=== PATIENT | female | born 1970 | race Caucasian/White ===

== ENCOUNTER 2016-09-16 15:38 | Emergency (ER) | payer OTHER ==
[2016-09-16] MEDS ORDERED: NS 0.9% 1000 ML* 1,000 ML IV ONE ×2 (17:26→18:25)
[2016-09-16] MEDS ORDERED: Ondansetron INJ* 2 MG/ML VIAL IV ONE (17:26)
[2016-09-16] MEDS ORDERED: Ketorolac INJ* 30 MG/ML 1 ML VIAL IV ONE (17:26)
[2016-09-16] MEDS ORDERED: Morphine INJ* 4 MG/ML 1 ML SYRINGE IV ONE ×2 (17:26→22:08)
[2016-09-16] MEDS ORDERED: Dexamethasone IV* 4 MG/ML 5 ML VIAL (20 MG) IVPB ONE (17:27)
[2016-09-16 18:02] LABS: Hematocrit 43 % (35-47); Hemoglobin 14.5 g/dl (12.0-16.0); Mean Corpuscular HGB Conc 34 g/dl (31-36); Mean Corpuscular Hemoglobin 32 pg (27-31); Mean Corpuscular Volume 93 fL (80-97); Mean Platelet Volume 9 um3 (7.4-10.4); Red Cell Distribution Width 13 % (10.5-15); White Blood Count 15.6 10^3/ul (3.5-10.8)
[2016-09-16 18:10] LABS: Mono Internal Control QC Line Present
[2016-09-16 18:17] LABS: Albumin 4.5 g/dL (3.2-5.2); BUN/Creatinine Ratio 19.7 (8-20); C Reactive Protein 72.07 mg/L (< 5.00); Calcium 9.6 mg/dL (8.6-10.3); EGFR Non-African American 96.4 (>60); Globulin 2.9 g/dL (2-4); Total Bilirubin 1.1 mg/dL (0.2-1.0); Total Protein 7.4 g/dL (6.4-8.9)
[2016-09-16] MEDS ORDERED: Iohexol 300* (CONTRAST) 10 ML SDV IV ONE (18:49)
--- NOTE | 2016-09-16 20:03 | RAD ---
INDICATION: Sore throat COMPARISON: None TECHNIQUE: Axial source images were acquired following the intravenous administration of 50 mL Omnipaque 300 Coronal and sagittal reconstructed images were acquired. FINDINGS: Brain and skull base: There are no CT abnormalities of the visualized brain or skull base. The mastoid air cells are well aerated. Salivary glands: The major salivary glands appear normal but there is infiltrative change of the fat adjacent to the right submandibular gland and there are reactive lymph nodes in the submandibular and submental space on the right. Paranasal sinuses: The paranasal sinuses are clear. Nasopharynx: The nasopharynx and nasal cavity appear normal. Oropharynx: There is right tonsillar prominence with edema in the prevertebral and right carotid space. Findings are suspicious for a developing right-sided peritonsillar abscess. Larynx: There are no laryngeal abnormalities. Thyroid: The thyroid appears normal. Lymph nodes: There are asymmetric lymph nodes in the right carotid space with infiltration of the adjacent fat. Trachea/esophagus: There are no abnormalities of the trachea or visualized esophagus. The visualized lung apices are clear.. Vessels:The vessels appear normal. Bones and soft tissues:The remaining soft tissue elements of the neck are normal. There are no acute bony findings. Other: None IMPRESSION: SUSPECT DEVELOPING RIGHT PERITONSILLAR ABSCESS MEASURING APPROXIMATELY 1.5 CM WITH ADJACENT EDEMA/INFLAMMATORY CHANGE EXTENDING INTO THE CAROTID AND SUBMANDIBULAR SPACE. MILD REACTIVE LYMPHADENOPATHY RIGHT NECK
[2016-09-16] MEDS ORDERED: Clindamycin CAP* 150 MG PO ONE (20:27)
[2016-09-16] MEDS ORDERED: Clindamycin 900 MG IVPREMIX(* 900 MG/50 ML SDV IV ONE (20:27)
[2016-09-16] MEDS ORDERED: oxyCODONE/Acetamin 5/325 MG* TAB PO ONE (20:42)
--- NOTE | 2016-09-16 21:14 | ED ---
Roxann Fuentes Erika, scribed for Crys Raygoza MD on 09/16/16 at 1909 . Throat Pain/Nasal Congestion - HPI Summary HPI Summary: Patient is a 46-year-old female presenting to the ED with her with a CC of constant sore throat starting 09/13/2016. Patient reports that she was seen by her doctor on 09/14 and 09/15, and had a negative strep test on 09/15. Patient was told that if she did not improve with saline rinses and ibuprofen, she could start penicillin today. She did not improve, and took her first dose of penicillin at 12:00 today. Associated symptoms include dysphagia, swelling to the neck worse on the right side, and right ear ache. Patient denies fever and sinus congestion. Patient states she has never had a sore throat this severe before. Patient denies Hx DM, HTN. She denies FHx DM. Patient lives with her , works as a teacher, and does not drink, smoke, or use illicit drugs. Patient is followed by Dr. Schilling. - History of Current Complaint Chief Complaint: EDThroatPain Time Seen by Provider: 09/16/16 16:59 Hx Obtained From: Patient Onset/Duration: Gradual Onset, Lasting Days, Still Present Severity: Moderate Associated Signs And Symptoms: Positive: Dysphagia. Negative: Nasal Discharge Cough: None - Allergies/Home Medications Allergies/Adverse Reactions: Allergies Allergy/AdvReac Type Severity Reaction Status Date / Time Levofloxacin [From Levaquin] Allergy Joint Pain Verified 09/16/16 15:47 Tramadol AdvReac Severe Nausea And Verified 09/29/15 08:03 Vomiting Amoxicillin [From Augmentin] AdvReac Mild Nausea And Verified 09/29/15 08:03 Vomiting Clavulanic Acid AdvReac Mild Nausea And Verified 09/29/15 08:04 [From Augmentin] Vomiting Metronidazole [From Flagyl] AdvReac Mild Nausea And Verified 09/29/15 08:04 Vomiting artificial sweeteners Allergy Severe Headache Uncoded 09/29/15 08:04 PMH/Surg Hx/FS Hx/Imm Hx Endocrine/Hematology History: Denies: Hx Diabetes, Hx Systemic Lupus Erythematosus Cardiovascular History: Denies: Hx Congestive Heart Failure, Hx Hypertension History: Denies: Hx Dialysis, Hx Renal Disease Musculoskeletal History: Denies: Hx Rheumatoid Arthritis Neurological History: Reports: Hx Headaches, Hx Migraine Denies: Hx Dementia, Hx Developmental Delay, Hx Nerve Disease, Hx Seizures, Hx Spinal Cord Injury, Hx Transient Ischemic Attacks (TIA), Other Neuro Impairments/Disorders - Cancer History Hx Chemotherapy: No - Surgical History Surgery Procedure, Year, and Place: MYOMECTOMY, [place] teeth removal, ; emergent laparotomy 05/31/15 5 days after ; Intestinal SX removed 1 1 /2 feet of intestine 05/31/15 due to an internal hernia through her , anterior to her urinary bladder. adenoidectomy 1971. Hx Anesthesia Reactions: No Infectious Disease History: Denies: Hx Clostridium Difficile, Hx Hepatitis, Hx Human Immunodeficiency Virus (HIV), Hx of Known/Suspected MRSA, Hx Shingles, Hx Tuberculosis, Hx Known/ Suspected VRE, Hx Known/Suspected VRSA, History Other Infectious Disease, Traveled Outside the [place] in Last 30 Days - Family History Known Family History: Negative: Diabetes - Social History Occupation: Employed Full-time Lives: With Family Alcohol Use: None Hx Substance Use: No Substance Use Type: Reports: None Hx Tobacco Use: No Smoking Status (MU): Never Smoked Tobacco Review of Systems Negative: Fever ENT: Other - swelling to the neck worse on the right side Positive: Sore Throat, Ear Ache - right All Other Systems Reviewed And Are Negative: Yes Physical Exam Triage Information Reviewed: Yes Vital Signs On Initial Exam: Initial Vitals Temp Pulse Resp BP Pulse Ox 98.5 F 85 16 123/85 100 09/16/16 15:43 09/16/16 15:43 09/16/16 15:43 09/16/16 15:43 09/16/16 15:43 Vital Signs Reviewed: Yes Appearance: Positive: Well-Appearing, No Pain Distress Skin: Positive: Warm, Skin Color Reflects Adequate Perfusion, Dry Eyes: Positive: EOMI, LOUIE ENT: Positive: Pharyngeal erythema Neck: Positive: Supple, Other: - Tender cervical lymphadenopathy on the right side but not the left Respiratory/Lung Sounds: Positive: Clear to Auscultation, Breath Sounds Present. Negative: Rales, Rhonchi, Wheezes Cardiovascular: Positive: RRR, Other - No gallops. Negative: Murmur, Rub Abdomen Description: Positive: Nontender, Soft, Other: - No rebound. Negative: Distended, Guarding Bowel Sounds: Positive: Present Musculoskeletal: Positive: Other - GIULIANO. Negative: Edema Left, Edema Right Neurological: Positive: Sensory/Motor Intact, Alert, Oriented to Person Place, Time, Other - CN II-XII intact Psychiatric: Positive: Affect/Mood Appropriate Diagnostics - Vital Signs Vital Signs Temp Pulse Resp BP Pulse Ox 09/16/16 15:43 98.5 F 85 16 123/85 100 - Laboratory Lab Results: Lab Results 09/16/16 09/16/16 Range/Units 17:50 17:50 WBC 15.6 H (3.5-10.8) 10^3/ul RBC 4.60 (4.0-5.4) 10^6/ul Hgb 14.5 (12.0-16.0) g/dl Hct 43 (35-47) % MCV 93 (80-97) fL MCH 32 H (27-31) pg MCHC 34 (31-36) g/dl RDW 13 (10.5-15) % Plt Count 217 (150-450) 10^3/ul MPV 9 (7.4-10.4) um3 Neut % (Auto) 81.0 (38-83) % Lymph % (Auto) 11.4 L (25-47) % [place] % (Auto) 6.6 (1-9) % Eos % (Auto) 0.6 (0-6) % Baso % (Auto) 0.4 (0-2) % Absolute Neuts (auto) 12.6 H (1.5-7.7) 10^3/ul Absolute Lymphs (auto) 1.8 (1.0-4.8) 10^3/ul Absolute Monos (auto) 1.0 H (0-0.8) 10^3/ul Absolute Eos (auto) 0.1 (0-0.6) 10^3/ul Absolute Basos (auto) 0.1 (0-0.2) 10^3/ul Absolute Nucleated RBC 0.02 10^3/ul Nucleated RBC % 0.1 Sodium 139 (133-145) mmol/L Potassium 4.0 (3.5-5.0) mmol/L Chloride 105 (101-111) mmol/L Carbon Dioxide 28 (22-32) mmol/L Anion Gap 6 (2-11) mmol/L BUN 13 (6-24) mg/dL Creatinine 0.66 (0.51-0.95) mg/dL Est GFR ( Amer) 124.0 (>60) Est GFR (Non-Af Amer) 96.4 (>60) BUN/Creatinine Ratio 19.7 (8-20) Glucose 97 (70-100) mg/dL Calcium 9.6 (8.6-10.3) mg/dL Total Bilirubin 1.10 H (0.2-1.0) mg/dL AST 17 (13-39) U/L ALT 16 (7-52) U/L Alkaline Phosphatase 67 (34-104) U/L C-Reactive Protein 72.07 H (< 5.00) mg/L Total Protein 7.4 (6.4-8.9) g/dL Albumin 4.5 (3.2-5.2) g/dL Globulin 2.9 (2-4) g/dL Albumin/Globulin Ratio 1.6 (1-3) Beta HCG, Quant 3.40 mIU/mL Monoscreen Negative (Negative) Result Diagrams: 09/16/16 17:50 09/16/16 17:50 Lab Statement: Any lab studies that have been ordered have been reviewed, and results considered in the medical decision making process. - CT Soft Tissue Neck CT Interpretation Completed By: Radiologist - IMPRESSION: SUSPECT DEVELOPING RIGHT PERITONSILLAR ABSCESS MEASURING APPROXIMATELY 1.5 CM WITH ADJACENT EDEMA/ INFLAMMATORY CHANGE EXTENDING INTO THE CAROTID AND SUBMANDIBULAR SPACE. MILD REACTIVE LYMPHADENOPATHY RIGHT NECK EENT Course/Dx - Course Course Of Treatment: 46 yo female with sore throat no fever wbc of 16K not clearly an olvin tonsillar abscess on exam but one showing on CT pt given dexamethasone and clinda and case discussed with Omayra who will see pt on Sunday - Diagnoses Provider Diagnoses: Tonsillar abscess - Provider Notifications Discussed Care of Patient with: Dr. Cutler (ENT) at 20:47 - agrees with the plan Discharge - Discharge Plan Condition: Stable Disposition: HOME Prescriptions: Acetaminop/Codeine 30 MG TAB* [Tylenol/Codeine 30 MG TAB*] 1 tab PO Q6H PRN #14 tab MDD 4 PRN Reason: Pain Clindamycin Cap(NF) [Cleocin 300 mg Cap(NF)] 300 mg PO Q6H #28 cap Ondansetron ODT TAB* [Zofran 4 MG Odt TAB*] 4 mg PO Q6H PRN #20 tab.odt PRN Reason: Nausea predniSONE TAB* [Deltasone TAB*] 60 mg PO DAILY #12 tab Patient Education Materials: Peritonsillar Abscess (ED) Referrals: Annette Schilling MD [Primary Care Provider] - Bolivar Cutler MD [Medical Doctor] - (Please follow up on Sunday with ENT.) The documentation as recorded by the Roxann harper Erika accurately reflects the service I personally performed and the decisions made by me, Crys Raygoza MD.
[2016-09-16] MEDS ORDERED: Clindamycin CAP* 150 MG ONE (21:34)
[2016-09-16 22:26] VITALS: BP 119/65
== END 2016-09-16 22:24 | disposition home or self-care (01) ==
LOC: ED 15:38
DX: J36 Peritonsillar abscess (principal); R13.10 Dysphagia, unspecified; J02.9 Acute pharyngitis, unspecified; H92.01 Otalgia, right ear
CPT/HCPCS: 36415; 70491; 80053; 84702; 85025; 86140; 86308; 96374; 96375; 99283; A9270-GY; J1885; J2270; J2405; Q9967